=== PATIENT | female | born 1995 | race Caucasian/White ===

== ENCOUNTER 2020-07-15 18:57 | Emergency (ER) | payer OTHER ==
[~2020-07-15] VITALS: Ht 152.4 cm; Wt 86.2 kg
[~2020-07-15 18:57] MED LIST: ACYCLOVIR800 MG PO; AMOXICILLIN500 MG PO; KEFLEX500 MG PO; KETOPROFEN50 MG PO; NORCO 5-325 TA1 EACH PO
[2020-07-15] MEDS ORDERED: ZOFRAN4 MG PO (20:54)
[2020-07-15] MEDS ORDERED: PROTONIX40 MG PO (20:54)
== END 2020-07-15 21:17 | disposition home or self-care (01) ==
LOC: ED 18:57
DX: R10.13 Epigastric pain (principal); R10.12 Left upper quadrant pain; F17.200 Nicotine dependence, unspecified, uncomplicated
CPT/HCPCS: 80053; 81001; 83690; 84703; 85025; 99284

== ENCOUNTER 2021-07-01 15:20 | Inpatient (IN) | payer OTHER ==
[~2021-07-01 15:20] MED LIST changes: +PROTONIX40 MG PO; +ZOFRAN4 MG PO
--- NOTE | 2021-07-01 19:05 | PR ---
[facility] [address] [facility] [place], [place] [address] Signed Progress Notes IP Datetime Report Generated by CPN: 07/01/2021 19:05 PROGRESS NOTES: [id number] Impression: Normal Progression of Labor Procedures: Scalp Electrode Plan: Continue Present Management VITAL SIGNS: [id number] Vital Signs: Reviewed; Within Normal Limits EXAM: [id number] Dilatation: 2.5 Effacement: 90 Station: 0 Contractions: irregular MEMBRANES: [id number] Membranes Status: Ruptured Amniotic Fluid Color: Clear Comments: After Epidural, BP down slightly, with about 5 minute bradycardia to 90's. then shorter decels to 90's. electrode applied, tried left side, right side. SQ Terbutaline given FHR now up to 150 bpm, normal variability. Will continue close monitoring. Ephedrine given FETUS A: [id number] FHR Baseline: 140 Variability: Moderate 6-25bpm Presentation: Vertex FETUS B: [id number] Signing Physician: Amada Engel MD Copies: ~ *Electronically Signed* 07/01/21 1905 AMADA ENGEL MD PATIENT NAME: MG DIAZ PROGRESS NOTE DATE OF : 95 PHYSICIAN: AMADA ENGEL MD RPT #: [id number] REPORT IS CONFIDENTIAL AND NOT TO BE RELEASED WITHOUT AUTHORIZATION
--- NOTE | 2021-07-01 22:06 | PR ---
[facility] [address] [facility] [place], [place] [address] Signed Progress Notes IP Datetime Report Generated by CPN: 07/01/2021 22:06 PROGRESS NOTES: [id number] Impression: Normal Progression of Labor Procedures: Scalp Electrode Plan: Continue Present Management VITAL SIGNS: [id number] Vital Signs: Reviewed; Within Normal Limits EXAM: P0066755 Dilatation: 4.0 Effacement: 90 Station: 0 Contractions: irregular MEMBRANES: B1793303 Membranes Status: Ruptured Amniotic Fluid Color: Clear Comments: Beginning to feel more contractions, getting uncomfortable. Will have Anesthesia evaluate for redose. May need IUPC, with Pitocin augmentation. FETUS A: [id number] FHR Baseline: 140 Variability: Moderate 6-25bpm Presentation: Vertex FETUS B: [id number] Signing Physician: Amada Engel MD Copies: ~ *Electronically Signed* 07/01/21 220 AMADA ENGEL MD PATIENT NAME: MG DIAZ PROGRESS NOTE DATE OF : 95 PHYSICIAN: AMADA ENGEL MD RPT #: [id number] REPORT IS CONFIDENTIAL AND NOT TO BE RELEASED WITHOUT AUTHORIZATION
--- NOTE | 2021-07-01 23:10 | PR ---
[facility] [address] [facility] [place], [place] [address] Signed Progress Notes IP Datetime Report Generated by CPN: 07/01/2021 23:10 PROGRESS NOTES: [id number] Impression: Normal Progression of Labor Other Impressions: Slow Progress Procedures: Intrauterine Pressure Catheter Plan: Augmentation VITAL SIGNS: [id number] Vital Signs: Reviewed; Within Normal Limits EXAM: [id number] Dilatation: 4.0 Effacement: 90 Station: 0 Contractions: irregular MEMBRANES: E1306500 Membranes Status: Bulging Amniotic Fluid Color: Clear Comments: Comfortable with Epidural. Will start Pitocin augmentation FETUS A: [id number] FHR Baseline: 140 Variability: Moderate 6-25bpm Presentation: Vertex FETUS B: [id number] Signing Physician: Amada Engel MD Copies: ~ *Electronically Signed* 07/01/21 4310 AMADA ENGEL MD PATIENT NAME: MG DIAZ PROGRESS NOTE DATE OF : 95 PHYSICIAN: AMADA ENGEL MD RPT #: [id number] REPORT IS CONFIDENTIAL AND NOT TO BE RELEASED WITHOUT AUTHORIZATION
--- NOTE | 2021-07-02 06:45 | PR ---
[facility] [address] [facility] [place], [place] [address] Signed Progress Notes IP Datetime Report Generated by CPN: 07/02/2021 03:17 PROGRESS NOTES: [id number] Impression: Normal Progression of Labor Other Impressions: Slow Progress Procedures: Intrauterine Pressure Catheter Plan: Continue Present Management VITAL SIGNS: [id number] Vital Signs: Reviewed; Within Normal Limits EXAM: G3466577 Dilatation: 5.0 Effacement: 90 Station: 0 Contractions: irregular MEMBRANES: W5765209 Membranes Status: Bulging Amniotic Fluid Color: Clear Comments: FHR decel to 80's for 1-2 minutes, resolved with position change, now tachycardia, but with good variability and accels; no evidence for amnionitis. Will continue monitoring. FETUS A: [id number] FHR Baseline: 140 Variability: Moderate 6-25bpm Presentation: Vertex FETUS B: [id number] Signing Physician: Amada Engel MD Copies: ~ *Electronically Signed* 07/02/21 031 AMADA ENGEL MD PATIENT NAME: MG DIAZ PROGRESS NOTE DATE OF : 95 PHYSICIAN: AMADA ENGEL MD [facility] #: [id number] REPORT IS CONFIDENTIAL AND NOT TO BE RELEASED WITHOUT AUTHORIZATION
--- NOTE | 2021-07-02 06:45 | PR ---
[facility] [address] [facility] [place] [address] Signed Progress Notes IP Datetime Report Generated by CPN: 07/02/2021 05:03 PROGRESS NOTES: [id number] Impression: Normal Progression of Labor Other Impressions: Slow progress Procedures: Intrauterine Pressure Catheter Plan: Continue Present Management VITAL SIGNS: [id number] Vital Signs: Reviewed; Within Normal Limits EXAM: T0712826 Dilatation: 6.0 Effacement: 90 Station: 0 Contractions: irregular MEMBRANES: E6667980 Membranes Status: Ruptured Amniotic Fluid Color: Clear Comments: Slow but steady progress Will continue monitoring FETUS A: [id number] FHR Baseline: 140 Variability: Moderate 6-25bpm Presentation: Vertex FETUS B: [id number] Signing Physician: Amada Engel MD Copies: ~ *Electronically Signed* 07/02/21 0503 AMADA ENGEL MD PATIENT NAME: MG DIAZ PROGRESS NOTE DATE OF : 95 PHYSICIAN: AMADA ENGEL MD RPT #: [id number] REPORT IS CONFIDENTIAL AND NOT TO BE RELEASED WITHOUT AUTHORIZATION
--- NOTE | 2021-07-02 06:55 | PR ---
[facility] [address] [facility] [place] [address] Signed Progress Notes IP Datetime Report Generated by CPN: 07/02/2021 06:55 PROGRESS NOTES: [id number] Impression: Normal Progression of Labor Other Impressions: Continued slow progress Procedures: Intrauterine Pressure Catheter Plan: Continue Present Management VITAL SIGNS: B3725247 Vital Signs: Reviewed; Within Normal Limits EXAM: P3544089 Dilatation: 7.0 Effacement: 90 Station: 0 Contractions: irregular MEMBRANES: A4405610 Membranes Status: Ruptured Amniotic Fluid Color: Clear Comments: Getting uncomfortabel again Slow progress, but still making change, so will continue monitoring Anesthesia to recheck Epidural. FETUS A: [id number] FHR Baseline: 140 Variability: Moderate 6-25bpm Presentation: Vertex FETUS B: [id number] Signing Physician: Amada Engel MD Copies: ~ *Electronically Signed* 07/02/21 0655 AMADA ENGEL MD PATIENT NAME: MG DIAZ PROGRESS NOTE DATE OF : 95 PHYSICIAN: AMADA ENGEL MD RPT #: [id number] REPORT IS CONFIDENTIAL AND NOT TO BE RELEASED WITHOUT AUTHORIZATION
--- NOTE | 2021-07-02 08:02 | PR ---
[facility] [address] [facility] [place], [place] [address] Signed Progress Notes IP Datetime Report Generated by MAKENNA: 07/02/2021 08:02 PROGRESS NOTES: [id number] Impression: Normal Progression of Labor Other Impressions: Slow progression of labor Procedures: Intrauterine Pressure Catheter Plan: Continue Present Management; Anesthesia Consult VITAL SIGNS: M4055040 Vital Signs: Reviewed; Within Normal Limits EXAM: A8803125 Dilatation: 7.0 Effacement: 90 Station: 0 Contractions: irregular MEMBRANES: G9464085 Membranes Status: Ruptured Amniotic Fluid Color: Clear Comments: Care assumed for patient. Reviewed chart, labor progess, and management course. Pitocin w/ IUPC w/ slow cervical change. SVE by RN demonstrates 7cm cervix w/ cervical edema. Very painful w/ contractions. FHT reassuring. Anesthsia notified and will be back to evaluate patient. Discussed possible nitrous and pt considering. Will continue to monitor closely. FETUS A: [id number] FHR Baseline: 140 Variability: Moderate 6-25bpm Presentation: Vertex FETUS B: [id number] Signing Physician: Mounika Persaud DO Copies: ~ *Electronically Signed* 07/02/21 08 MOUNIKA PERSAUD DO PATIENT NAME: MG DIAZ PROGRESS NOTE DATE OF : 95 PHYSICIAN: MOUNIKA PERSAUD DO RPT #: [id number] REPORT IS CONFIDENTIAL AND NOT TO BE RELEASED WITHOUT AUTHORIZATION
--- NOTE | 2021-07-02 10:19 | PR ---
[facility] [address] [facility] [place], [place] [address] Signed Progress Notes IP Datetime Report Generated by CPN: 07/02/2021 10:19 PROGRESS NOTES: [id number] Impression: Normal Progression of Labor Other Impressions: Slow Progress Procedures: Intrauterine Pressure Catheter Plan: Continue Present Management VITAL SIGNS: Y9388475 Vital Signs: Reviewed; Within Normal Limits EXAM: F6739356 Dilatation: 8.0 Effacement: 100 Station: 0 Contractions: irregular MEMBRANES: [id number] Membranes Status: Ruptured Amniotic Fluid Color: Clear Comments: Continued slow but steady progress with reassuring FHR tracing. Anesthesia working with patient for pain control. N2O available if patient desires. Will continue with Pitocin augmentation. FETUS A: [id number] FHR Baseline: 140 Variability: Moderate 6-25bpm Presentation: Vertex FETUS B: [id number] Signing Physician: Amada Engel MD Copies: ~ *Electronically Signed* 07/02/21 1019 AMADA ENGEL MD PATIENT NAME: MG DIAZ PROGRESS NOTE DATE OF : 95 PHYSICIAN: AMADA ENGEL MD RPT #: [id number] REPORT IS CONFIDENTIAL AND NOT TO BE RELEASED WITHOUT AUTHORIZATION
--- NOTE | 2021-07-03 11:35 | PR ---
[facility] [address] [place] [address] Signed PP Progress Notes Datetime Report Generated by CPN: 07/03/2021 11:35 SUBJECTIVE: [id number] Pain: Within Normal Limits Nausea/Vomiting: Denies Vital Signs: A3691719 Vital Signs: Reviewed; Within Normal Limits Notable Details: PP Hgb/Hct = 10.0/30.4 Abdomen/Uterus: Normal Lochia: Normal Extremities: Normal IMPRESSION/PLAN/PROCEDURES: R4282333 Impression: Normal Progression Plan: Continue Present Management Procedures: None Progress Notes: Doing well, without complaint except for some back and neck soreness. Taking Ibuprofen and [place] for pain. Will follow. Signing Physician: Amada Engel MD Copies: ~ *Electronically Signed* 07/03/21 1135 AMADA ENGEL MD PATIENT NAME: MG DIAZ PROGRESS NOTE DATE OF : 95 PHYSICIAN: AMADA ENGEL MD RPT #: [id number] REPORT IS CONFIDENTIAL AND NOT TO BE RELEASED WITHOUT AUTHORIZATION
--- NOTE | 2021-07-04 10:45 | PR ---
[facility] [address] [facility] [place], [place] [address] Signed PP Progress Notes Datetime Report Generated by CPN: 07/04/2021 10:45 SUBJECTIVE: [id number] Pain: Abnormal Pain Comments: C/o severe haeadache earlier, only mild now Nausea/Vomiting: Denies Vital Signs: [id number] Vital Signs: Reviewed Notable Details: Elevated BP Abdomen/Uterus: Normal Lochia: Normal Extremities: Normal Exam Comments: No edema IMPRESSION/PLAN/PROCEDURES: P5400023 Impression: Normal Progression Other Impression: Gestational Hypertension Plan: Continue Present Management Other Plans: Started on Procardia XL Procedures: None Progress Notes: Elevated BP this morning, up and down, with headache, but no vision changes, no RUQ abdominal pain, no swelling. -> PIH Panel and Urine PC Ratio ordered (awaiting results) -> started on Procardia XL 30 mg daily -> d/c Ibuprofen Will continue monitoring and hjave patient stay another day Signing Physician: Amada Engel MD Copies: ~ *Electronically Signed* 07/04/21 1045 AMADA ENGEL MD PATIENT NAME: MG DIAZ PROGRESS NOTE DATE OF : 95 PHYSICIAN: AMADA ENGEL MD RPT #: [id number] REPORT IS CONFIDENTIAL AND NOT TO BE RELEASED WITHOUT AUTHORIZATION
--- NOTE | 2021-07-05 11:08 | PR ---
[facility] [address] [facility] [place], [place] [address] Signed PP Progress Notes Datetime Report Generated by CPN: 07/05/2021 11:08 SUBJECTIVE: [id number] Pain: Within Normal Limits Pain Comments: C/o severe haeadache earlier, only mild now Nausea/Vomiting: Denies Vital Signs: A2009225 Vital Signs: Reviewed; Within Normal Limits Notable Details: Elevated BP Abdomen/Uterus: Normal Lochia: Normal Extremities: Normal Exam Comments: No edema IMPRESSION/PLAN/PROCEDURES: F8608665 Impression: Normal Progression Other Impression: PP Gestational Hypertension Plan: Discharge Other Plans: Started on Procardia XL Procedures: None Progress Notes: Doing well, still with headaches, mostly in low back, upper neck, worse with standing, slowly improving. Otherwise doing well, would like to go home. Signing Physician: Amada Engel MD Copies: ~ *Electronically Signed* 07/05/21 1108 AMADA ENGEL MD PATIENT NAME: MG DIAZ PROGRESS NOTE DATE OF : 95 PHYSICIAN: AMADA ENGEL MD RPT #: [id number] REPORT IS CONFIDENTIAL AND NOT TO BE RELEASED WITHOUT AUTHORIZATION
[2021-07-06] MEDS ORDERED: NIFEDIPINE ER30 M1 PO (13:03)
[2021-07-06] MEDS ORDERED: IRON240 MG PO (13:04)
[2021-07-06] MEDS ORDERED: PRENATAL FORMU1 EAC3 PO (13:05)
[2021-07-06] MEDS ORDERED: ULTRAM50 MG PO (17:52)
[2021-07-06] MEDS ORDERED: CEPHALEXIN500 M1 PO (17:52)
== END 2021-07-05 11:45 | disposition home or self-care (01) | DRG 807 ==
LOC: FBCO 15:20 → FBC 15:40
PROVIDERS: ADMIT General Practice; ATTEND General Practice
PROC: 10H07YZ Insertion of Other Device into Products of Conception, Via Natural or Artificial Opening (ICD-10-PCS; principal; 2021-07-01)
PROC: 10E0XZZ Delivery of Products of Conception, External Approach (ICD-10-PCS; 2021-07-01)
PROC: 0HQ9XZZ Repair Perineum Skin, External Approach (ICD-10-PCS; 2021-07-01)
PROC: 3E0R3BZ Introduction of Anesthetic Agent into Spinal Canal, Percutaneous Approach (ICD-10-PCS; 2021-07-01)
PROC: 3E0R33Z Introduction of Anti-inflammatory into Spinal Canal, Percutaneous Approach (ICD-10-PCS; 2021-07-01)
DX: O42.92 Full-term premature rupture of membranes, unspecified as to length of time between rupture and onset of labor (principal); Z37.0 Single live birth; Z20.822 Contact with and (suspected) exposure to COVID-19; O13.5 Gestational [pregnancy-induced] hypertension without significant proteinuria, complicating the puerperium; O70.0 First degree perineal laceration during delivery; Z3A.39 39 weeks gestation of pregnancy
CPT/HCPCS: 36415; 82565; 82570; 84156; 84450; 84520; 84550; 85025; 85027; 86850; 86900; 86901; 87502; 90707; A9270; C9803; J2001; J2405; J2550; J2590; J2795; J3105; J7121; U0003

== ENCOUNTER 2021-07-06 12:20 | Emergency (ER) | payer OTHER ==
[~2021-07-06] VITALS: Ht 152.4 cm; Wt 86.2 kg
--- OUTSIDE RECORDS SUMMARY | 2021-07-06 12:22 | XMS ---
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 Padmini has no Care Guidelines for this patient. Care History Medical/Surgical 07/17/2020 [facility] - [facility] RECEIVED CASE MGMNT CONSULT- HELP PATIENT ESTABLISH CARE WITH A PROVIDER. - [facility] CALLED [phone] AND NUMBER IS NO LONGER IN SERVICE - NO PCP LETTER SENT TO PATIENT WITH PROVIDER LIST ATTACHED. E.D. VISIT COUNT (12 MO.) [address] TOTAL 3 NOTE: Visits indicate total known visits. ED/UCC VISIT TRACKING (12 MO.) 07/06/2021 12:21 [facility] [place] TYPE: Emergency COMPLAINT: - HIGH BP,BACK PAIN 04/26/2021 09:45 [facility] [place] TYPE: Emergency DIAGNOSES: - NEUSAE - Nausea with vomiting, unspecified - Proteinuria, unspecified 07/15/2020 18:57 [facility] [place] TYPE: Emergency COMPLAINT: - ABD PAIN DIAGNOSES: - Epigastric pain - Left upper quadrant pain - Nicotine dependence, unspecified, uncomplicated INPATIENT VISIT TRACKING (12 MO.) 07/01/2021 15:40 [facility] [place] TYPE: [facility] COMPLAINT: - LABOR [email or web address]
[2021-07-06] MEDS ORDERED: NIFEDIPINE ER30 M1 PO (13:03)
[2021-07-06] MEDS ORDERED: IRON240 MG PO (13:04)
[2021-07-06] MEDS ORDERED: PRENATAL FORMU1 EAC3 PO (13:05)
[2021-07-06] MEDS ORDERED: CEPHALEXIN500 M1 PO (17:52)
[2021-07-06] MEDS ORDERED: ULTRAM50 MG PO (17:52)
== END 2021-07-06 18:22 | disposition home or self-care (01) ==
LOC: ED 12:20
DX: G97.1 Other reaction to spinal and lumbar puncture (principal); N39.0 Urinary tract infection, site not specified; F17.200 Nicotine dependence, unspecified, uncomplicated; Z79.899 Other long term (current) drug therapy
CPT/HCPCS: 36415; 80053; 81001; 83735; 85025; 96374; 96375; 99284-25; A9270; J1170; J2250; J2405; J3010; J7030

== ENCOUNTER 2022-04-04 09:06 | Emergency (ER) | payer OTHER ==
[~2022-04-04] VITALS: Ht 152.4 cm; Wt 71.1 kg
[~2022-04-04 09:06] MED LIST changes: +CEPHALEXIN500 M1 PO; +IRON240 MG PO; +NIFEDIPINE ER30 M1 PO; +PRENATAL FORMU1 EAC3 PO; +ULTRAM50 MG PO
--- OUTSIDE RECORDS SUMMARY | 2022-04-04 09:08 | XMS ---
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 Care History Medical/Surgical 07/17/2020 [facility] RECEIVED CASE MGMNT CONSULT- HELP PATIENT ESTABLISH CARE WITH A PROVIDER. - W CALLED [phone] AND NUMBER IS NO LONGER IN SERVICE - NO PCP LETTER SENT TO PATIENT WITH PROVIDER LIST ATTACHED. E.D. VISIT COUNT (12 MO.) [address] [facility] TOTAL 3 NOTE: Visits indicate total known visits. ED/UCC VISIT TRACKING (12 MO.) 04/04/2022 09:07 [facility] [place] TYPE: Emergency COMPLAINT: - VOMITING 07/06/2021 12:21 [facility] [place] TYPE: Emergency COMPLAINT: - HIGH BP,BACK PAIN DIAGNOSES: - Other terminal worker (current) drug therapy - Urinary tract infection, site not specified - Nicotine dependence, unspecified, uncomplicated - Other reaction to spinal and lumbar puncture 04/26/2021 09:45 [facility] [place] TYPE: Emergency DIAGNOSES: - Proteinuria, unspecified - NEUSAE - Nausea with vomiting, unspecified INPATIENT VISIT TRACKING (12 MO.) 07/01/2021 15:40 Y[facility]Y Lema [place] TYPE: [facility] COMPLAINT: - LABOR DIAGNOSES: - First degree perineal laceration during delivery - Contact with and (suspected) exposure to COVID-19 - Single live - Single live - 39 weeks gestation of - Full-term premature rupture of membranes, unspecified as to length of time between rupture and onset of labor - Gestational [-induced] hypertension without significant proteinuria, complicating the puerperium - Contact with and (suspected) exposure to COVID-19 - Gestational [-induced] hypertension without significant proteinuria, complicating the puerperium - 39 weeks gestation of - First degree perineal laceration during delivery [email or web address]
[2022-04-04] MEDS ORDERED: CEPHALEXIN500 M1 PO (12:18)
[2022-04-04] MEDS ORDERED: ONDANSETRON ODT4 MG PO (12:18)
== END 2022-04-04 12:23 | disposition home or self-care (01) ==
LOC: ED 09:06
DX: N39.0 Urinary tract infection, site not specified (principal); K52.9 Noninfective gastroenteritis and colitis, unspecified; F17.200 Nicotine dependence, unspecified, uncomplicated; Z88.5 Allergy status to narcotic agent
CPT/HCPCS: 36415; 74177; 80053; 81001; 83690; 84703; 85025; 85060; 96361; 96374; 96375; 96376; 99284-25; J0696; J1200; J1790; J7030; Q9967